=== PATIENT | male | born 1985 | race Caucasian/White ===

== ENCOUNTER 2016-06-30 14:33 | Observation (INO) | payer MEDICAID ==
[~2016-06-30] VITALS: Ht 177.8 cm; Wt 81.9 kg
[~2016-06-30 14:33] MED LIST: ARIP10TA13 PO; ARIP30TA PO; CHLO50TA6 PO; CLON-364 PO; HALDOL; HALO50AM4 IM; HYDR25TA11 PO; LEVE500T53 PO; LITH300C PO; OXCA150T PO; OXCA600T3 PO; PHEN100C PO; PRAZ5CAP2 PO; QUET100T4 PO; QUET200T PO; SERT50TA5 PO; ZIPR20VI IM
[2016-06-30 15:24] LABS: DAU SCREEN DISCLAIMER
[2016-06-30 15:27] LABS: BLOOD UREA NITROGEN 13 mg/dL (7-18)
[2016-06-30 15:31] LABS: ASPARTATE AMINO TRANSFERASE 24 U/L (15-37)
[2016-06-30 15:32] LABS: PATH.CAST-FLAG NOT PRESENT; SPERM-FLAG NOT PRESENT; SRC-FLAG NOT PRESENT; XTAL-FLAG NOT PRESENT; YLC-FLAG NOT PRESENT
[2016-06-30 15:34] LABS: ACETAMINOPHEN < 2 mcg/mL (10-30)
[2016-06-30] MEDS ORDERED: POLYETHYLENE GLYCOL 17 GM PACKET PO PRN (17:00)
[2016-06-30] MEDS ORDERED: OLAN5TAB3 PO (17:43)
[2016-06-30 18:23] VITALS: BP 104/66
[2016-06-30 20:00] VITALS: BP 104/64
[2016-06-30] MEDS ORDERED: PHENYTOIN 100 MG CAPSULE PO SCH (21:00)
[2016-06-30] MEDS ORDERED: QUETIAPINE 100MG TABLET PO SCH (21:00)
[2016-07-01 06:22] LABS: ASPARTATE AMINO TRANSFERASE 20 U/L (15-37); BLOOD UREA NITROGEN 11 mg/dL (7-18)
[2016-07-01 08:00] VITALS: BP 100/67
[2016-07-01] MEDS ORDERED: SENNA/DOCUSATE TABLET PO SCH (09:00)
[2016-07-01] MEDS ORDERED: OLAN10TA9 PO (16:46)
[2016-07-01] MEDS ORDERED: PHEN100C PO (16:46)
[2016-07-01] MEDS ORDERED: PHENYTOIN 100 MG CAPSULE PO SCH (21:00)
[2016-07-01] MEDS ORDERED: OLANZAPINE 10 MG TABLET PO SCH (21:00)
== END 2016-07-01 17:34 | disposition home or self-care (01) ==
LOC: ED 15:27 → EDIP 15:35 → 3E 18:18
PROVIDERS: ADMIT Hospitalist; ATTEND Hospitalist
DX: R45.851 Suicidal ideations (principal); R44.0 Auditory hallucinations; F31.9 Bipolar disorder, unspecified; G40.909 Epilepsy, unspecified, not intractable, without status epilepticus; F10.129 Alcohol abuse with intoxication, unspecified; F17.210 Nicotine dependence, cigarettes, uncomplicated; F43.10 Post-traumatic stress disorder, unspecified; F90.9 Attention-deficit hyperactivity disorder, unspecified type; F41.9 Anxiety disorder, unspecified; F20.9 Schizophrenia, unspecified
CPT/HCPCS: 36415; 80053; 80185; 80307; 80329; 81001; 84439; 84443; 85025; 85610; 99285; G0378; G0480

== ENCOUNTER 2016-08-11 12:27 | Emergency (ER) | payer MEDICAID ==
[~2016-08-11] VITALS: Ht 175.3 cm; Wt 82.0 kg
[~2016-08-11 12:27] MED LIST changes: +OLAN10TA9 PO; +OLAN5TAB3 PO
[2016-08-11 12:30] VITALS: BP 131/83
[2016-08-11 13:31] LABS: DAU SCREEN DISCLAIMER
[2016-08-11] MEDS ORDERED: OLAN15TA3 PO (13:36)
[2016-08-11 13:42] LABS: BLOOD UREA NITROGEN 16 mg/dL (7-18)
[2016-08-11 13:45] LABS: ASPARTATE AMINO TRANSFERASE 21 U/L (15-37)
[2016-08-11 13:46] LABS: ACETAMINOPHEN < 2 mcg/mL (10-30)
== END 2016-08-11 18:37 | disposition home or self-care (01) ==
LOC: ED 13:40
DX: F43.0 Acute stress reaction (principal); F41.9 Anxiety disorder, unspecified; F32.9 Major depressive disorder, single episode, unspecified; F25.9 Schizoaffective disorder, unspecified
CPT/HCPCS: 36415; 80053; 80307; 80329; 85025; 99284; G0480

== ENCOUNTER 2016-08-24 13:03 | Emergency (ER) | payer MEDICAID ==
[~2016-08-24] VITALS: Ht 175.3 cm; Wt 88.0 kg
[~2016-08-24 13:03] MED LIST changes: +OLAN15TA3 PO
[2016-08-24 13:30] LABS: DAU SCREEN DISCLAIMER
[2016-08-24] MEDS ORDERED: DIPHENHYDRAMINE 50 MG/ML, 1ML IM ONE (14:00)
[2016-08-24] MEDS ORDERED: DIPHENHYDRAMINE 50 MG/ML, 1ML ONE (14:05)
[2016-08-24 14:34] LABS: BLOOD UREA NITROGEN 13 mg/dL (7-18)
[2016-08-24 14:37] LABS: ACETAMINOPHEN < 2 mcg/mL (10-30)
[2016-08-24 17:58] VITALS: BP 115/79
== END 2016-08-24 18:02 | disposition home or self-care (01) ==
LOC: ED 16:47
DX: F23 Brief psychotic disorder (principal); F22 Delusional disorders; T50.905A Adverse effect of unspecified drugs, medicaments and biological substances, initial encounter
CPT/HCPCS: 36415; 80048; 80307; 80329; 82040; 85025; 96372; 99284; J1200; G0480

== ENCOUNTER 2016-09-12 09:06 | Emergency (ER) | payer MEDICAID ==
[~2016-09-12] VITALS: Ht 175.3 cm; Wt 89.0 kg
[2016-09-12 09:10] VITALS: BP 124/78
[2016-09-12] MEDS ORDERED: LEVE250T28 PO (09:30)
[2016-09-12] MEDS ORDERED: RISP4TAB2 PO (09:30)
[2016-09-12 09:59] LABS: DAU SCREEN DISCLAIMER
[2016-09-12 10:23] LABS: BLOOD UREA NITROGEN 13 mg/dL (7-18)
[2016-09-12 10:24] LABS: ASPARTATE AMINO TRANSFERASE 24 U/L (15-37)
[2016-09-12 10:28] LABS: ACETAMINOPHEN < 2 mcg/mL (10-30)
[2016-09-12] MEDS ORDERED: OLANZAPINE 5 MG TABLET PO STA (10:45)
[2016-09-12] MEDS ORDERED: OLAN20TA3 PO (10:51)
[2016-09-12] MEDS ORDERED: OLANZAPINE 10 MG TABLET PO STA (10:52)
== END 2016-09-12 11:23 | disposition home or self-care (01) ==
LOC: ED 10:18
DX: F23 Brief psychotic disorder (principal); F90.9 Attention-deficit hyperactivity disorder, unspecified type; F41.1 Generalized anxiety disorder; F32.9 Major depressive disorder, single episode, unspecified
CPT/HCPCS: 36415; 80053; 80307; 80329; 85025; 99284; G0480

== ENCOUNTER 2016-10-01 14:13 | Observation (INO) | payer MEDICAID ==
[~2016-10-01] VITALS: Ht 175.3 cm; Wt 80.0 kg
[~2016-10-01 14:13] MED LIST changes: +LEVE250T28 PO; +OLAN20TA3 PO; +RISP4TAB2 PO
[2016-10-01] MEDS ORDERED: ZIPRASIDONE 20 MG INJ IM ONE (14:30)
[2016-10-01] MEDS ORDERED: PLEASE ENTER HEIGHT AND WEIGHT MC SCH (14:30)
[2016-10-01 14:34] LABS: HEMATOCRIT 50.5 % (39.2-51.8); HEMOGLOBIN 17.6 g/dL (13.7-18.0); WHITE BLOOD COUNT 6.3 x10^3/uL (3.4-10)
[2016-10-01 14:43] LABS: BLOOD UREA NITROGEN 10 mg/dL (7-18)
[2016-10-01 14:44] LABS: ACETAMINOPHEN < 2 mcg/mL (10-30)
[2016-10-01 15:36] LABS: DAU SCREEN DISCLAIMER
[2016-10-01] MEDS ORDERED: NICOTINE 7 MG/24 HR PATCH.TD24 TD SCH (17:00)
[2016-10-01 17:47] VITALS: BP 118/73
[2016-10-01] MEDS ORDERED: QUET200T4 PO (18:01)
[2016-10-01 19:59] VITALS: BP 125/77
[2016-10-01] MEDS ORDERED: OLANZAPINE 5 MG TABLET ONE (20:09)
[2016-10-01] MEDS ORDERED: RISPERIDONE 2 MG TABLET PO SCH (21:00)
[2016-10-01] MEDS ORDERED: LEVETIRACETAM 500 MG TABLET PO SCH (21:00)
[2016-10-01] MEDS ORDERED: OLANZAPINE 10 MG TABLET PO SCH (21:00)
[2016-10-01] MEDS ORDERED: OLANZAPINE 5 MG TABLET PO SCH (21:00)
[2016-10-01] MEDS: QUETIAPINE 200 MG TABLET PO SCH (21:15)
[2016-10-02 08:30] VITALS: BP_SYST 116; BP_SYST 130; BP_DIAS 81; BP_DIAS 86
[2016-10-02] MEDS: LEVETIRACETAM 500 MG TABLET PO SCH ×2 (09:40→20:11)
[2016-10-02] MEDS: NICOTINE 7 MG/24 HR PATCH.TD24 TD SCH (09:41)
[2016-10-02] MEDS: ENOXAPARIN 40 MG/0.4 ML SQ SCH (14:00)
[2016-10-02] MEDS: QUETIAPINE 200 MG TABLET PO SCH (20:12)
[2016-10-02 20:40] VITALS: BP 125/79
[2016-10-02] MEDS ORDERED: OLANZAPINE 10 MG TABLET PO SCH (21:00)
[2016-10-03 08:43] VITALS: BP 107/73
[2016-10-03] MEDS: NICOTINE 7 MG/24 HR PATCH.TD24 TD SCH (09:11)
[2016-10-03] MEDS: LEVETIRACETAM 500 MG TABLET PO SCH (09:11)
[2016-10-03] MEDS: ENOXAPARIN 40 MG/0.4 ML SQ SCH (13:55)
== END 2016-10-03 14:40 | disposition home or self-care (01) ==
LOC: ED 15:04 → EDIP 15:37 → 3E 17:36
PROVIDERS: ADMIT Family Medicine; ATTEND Family Medicine
DX: F29 Unspecified psychosis not due to a substance or known physiological condition (principal); G40.909 Epilepsy, unspecified, not intractable, without status epilepticus; J45.909 Unspecified asthma, uncomplicated; F79 Unspecified intellectual disabilities; F12.90 Cannabis use, unspecified, uncomplicated; F17.210 Nicotine dependence, cigarettes, uncomplicated; F31.9 Bipolar disorder, unspecified; F41.1 Generalized anxiety disorder; F90.9 Attention-deficit hyperactivity disorder, unspecified type; R45.851 Suicidal ideations; Z80.6 Family history of leukemia; Z81.8 Family history of other mental and behavioral disorders; Z91.14 Patient's other noncompliance with medication regimen
CPT/HCPCS: 36415; 80048; 80307; 80329; 82040; 85025; 99285; G0378; G0480

== ENCOUNTER 2016-10-07 11:58 | Emergency (ER) | payer MEDICAID ==
[~2016-10-07] VITALS: Ht 177.8 cm; Wt 78.0 kg
[~2016-10-07 11:58] MED LIST changes: +QUET200T4 PO
[2016-10-07 12:50] LABS: HEMATOCRIT 44.8 % (39.2-51.8); HEMOGLOBIN 15.5 g/dL (13.7-18.0); WHITE BLOOD COUNT 5.2 x10^3/uL (3.4-10)
[2016-10-07 13:03] LABS: BLOOD UREA NITROGEN 12 mg/dL (7-18)
[2016-10-07 13:05] LABS: ACETAMINOPHEN < 2 mcg/mL (10-30)
[2016-10-07 14:40] VITALS: BP 112/76
== END 2016-10-07 16:05 | disposition home or self-care (01) ==
LOC: ED 13:06
DX: F32.0 Major depressive disorder, single episode, mild (principal); F25.9 Schizoaffective disorder, unspecified; F10.129 Alcohol abuse with intoxication, unspecified; F90.9 Attention-deficit hyperactivity disorder, unspecified type
CPT/HCPCS: 36415; 80048; 80307; 80329; 82040; 85025; 99284; G0480

== ENCOUNTER 2016-10-15 12:29 | Emergency (ER) | payer MEDICAID ==
[~2016-10-15] VITALS: Ht 175.3 cm; Wt 79.5 kg
[~2016-10-15 12:29] MED LIST changes: -ARIP10TA13 PO; +ARIP10TA33 PO; -ARIP30TA PO; +ARIP30TA4 PO
[2016-10-15 12:46] LABS: DAU SCREEN DISCLAIMER
[2016-10-15 12:49] LABS: HEMATOCRIT 47.3 % (39.2-51.8); HEMOGLOBIN 16.4 g/dL (13.7-18.0); WHITE BLOOD COUNT 5.5 x10^3/uL (3.4-10)
[2016-10-15 13:02] LABS: BLOOD UREA NITROGEN 7 mg/dL (7-18)
[2016-10-15 13:05] LABS: ACETAMINOPHEN < 2 mcg/mL (10-30)
[2016-10-15 17:14] VITALS: BP 108/76
== END 2016-10-15 17:21 | disposition home or self-care (01) ==
LOC: ED 12:43
DX: R44.0 Auditory hallucinations (principal); F33.9 Major depressive disorder, recurrent, unspecified; R45.851 Suicidal ideations; F25.9 Schizoaffective disorder, unspecified; F90.9 Attention-deficit hyperactivity disorder, unspecified type; F41.9 Anxiety disorder, unspecified
CPT/HCPCS: 36415; 80048; 80307; 80329; 82040; 85025; 99284; G0480

== ENCOUNTER 2016-12-19 12:21 | Emergency (ER) | payer MEDICAID ==
[~2016-12-19] VITALS: Ht 175.3 cm; Wt 85.5 kg
[2016-12-19 12:23] VITALS: BP 131/88
== END 2016-12-19 14:11 | disposition home or self-care (01) ==
LOC: ED 13:50
DX: M25.511 Pain in right shoulder (principal); W19.XXXA Unspecified fall, initial encounter; Y93.61 Activity, american tackle football; Y92.39 Other specified sports and athletic area as the place of occurrence of the external cause; Y99.8 Other external cause status
CPT/HCPCS: 99284

== ENCOUNTER 2017-01-07 20:27 | Emergency (ER) | payer MEDICAID, OTHER ==
[~2017-01-07] VITALS: Ht 175.3 cm; Wt 86.0 kg
[2017-01-07 20:29] VITALS: BP 154/71
[2017-01-07] MEDS ORDERED: BACITRACIN ZINC OINT 500U/GM, 0.9 GM ONE (21:38)
== END 2017-01-07 22:23 | disposition home or self-care (01) ==
LOC: ED 21:12
DX: S51.812A Laceration without foreign body of left forearm, initial encounter (principal); W26.0XXA Contact with knife, initial encounter; Y93.89 Activity, other specified; Y92.89 Other specified places as the place of occurrence of the external cause; Y99.9 Unspecified external cause status
CPT/HCPCS: 12001; 99283

== ENCOUNTER 2017-01-31 10:14 | Emergency (ER) | payer MEDICAID, OTHER ==
[~2017-01-31] VITALS: Ht 177.8 cm; Wt 86.2 kg
[2017-01-31 10:22] VITALS: BP 118/83
== END 2017-01-31 10:53 | disposition home or self-care (01) ==
LOC: ED 10:40
DX: G89.29 Other chronic pain (principal); M25.511 Pain in right shoulder; F90.9 Attention-deficit hyperactivity disorder, unspecified type; G40.909 Epilepsy, unspecified, not intractable, without status epilepticus
CPT/HCPCS: 99283

== ENCOUNTER 2017-02-09 16:56 | Emergency (ER) | payer MEDICAID ==
[~2017-02-09] VITALS: Ht 177.8 cm; Wt 78.0 kg
[2017-02-09] MEDS ORDERED: LORazepam 1MG TABLET PO ONE (17:30)
[2017-02-09 17:38] LABS: HEMATOCRIT 48.4 % (39.2-51.8); HEMOGLOBIN 16.7 g/dL (13.7-18.0); WHITE BLOOD COUNT 12.1 x10^3/uL (3.4-10)
[2017-02-09] MEDS ORDERED: LORazepam 1MG TABLET ONE (17:45)
[2017-02-09 17:47] LABS: ASPARTATE AMINO TRANSFERASE 11 U/L (15-37); BLOOD UREA NITROGEN 15 mg/dL (7-18)
[2017-02-09 17:49] LABS: DAU SCREEN DISCLAIMER
[2017-02-09 19:43] VITALS: BP 115/67
== END 2017-02-09 20:09 | disposition home or self-care (01) ==
LOC: ED 17:09
DX: F15.129 Other stimulant abuse with intoxication, unspecified (principal); R44.3 Hallucinations, unspecified; F90.9 Attention-deficit hyperactivity disorder, unspecified type; F25.9 Schizoaffective disorder, unspecified; F31.9 Bipolar disorder, unspecified
CPT/HCPCS: 36415; 80053; 80307; 85025; 99284; G0479

== ENCOUNTER 2017-02-16 00:19 | Emergency (ER) | payer MEDICAID ==
[~2017-02-16] VITALS: Ht 177.8 cm; Wt 84.1 kg
[2017-02-16 00:20] VITALS: BP 121/85
== END 2017-02-16 02:05 | disposition home or self-care (01) ==
LOC: ED 00:37
DX: G89.11 Acute pain due to trauma (principal); M79.642 Pain in left hand; G40.909 Epilepsy, unspecified, not intractable, without status epilepticus; F90.9 Attention-deficit hyperactivity disorder, unspecified type; Z88.0 Allergy status to penicillin; Z88.8 Allergy status to other drugs, medicaments and biological substances; F25.9 Schizoaffective disorder, unspecified; X50.0XXA Overexertion from strenuous movement or load, initial encounter; Y93.H2 Activity, gardening and landscaping; Y99.8 Other external cause status; Y92.096 Garden or yard of other non-institutional residence as the place of occurrence of the external cause
CPT/HCPCS: 29130; 99284

== ENCOUNTER 2017-08-04 12:29 | Emergency (ER) | payer MEDICAID ==
[~2017-08-04] VITALS: Ht 175.3 cm; Wt 68.0 kg
[2017-08-04] MEDS ORDERED: PHENYTOIN SODIUM 1,000 MG in SODIUM CHLORIDE 0.9% 100 ML IVPB ONE (12:30)
[2017-08-04] MEDS ORDERED: PHEN100C PO ×2 (12:39)
[2017-08-04 12:48] LABS: BASOPHILS # (AUTO) 0.02 x10^3/uL (0-0.1); BASOPHILS % (AUTO) 0 % (0-1); EOSINOPHILS # (AUTO) 0.03 x10^3/uL (0-0.4); EOSINOPHILS % (AUTO) 1 % (1-7); LYMPHOCYTES # (AUTO) 1.49 x10^3/uL (1-3.4); LYMPHOCYTES % (AUTO) 27 % (22-44); MD NO; MEAN CORPUSCULAR HEMOGLOBIN 33.5 pg (27.5-34.5); MEAN CORPUSCULAR HGB CONC 34.8 g/dL (33.2-36.2); MEAN CORPUSCULAR VOLUME 96.2 fL (81-97); MEAN PLATELET VOLUME 7.9 fL (7.4-10.4); MONOCYTES # (AUTO) 0.39 x10^3/uL (0.2-0.8); MONOCYTES % (AUTO) 7 % (2-9); NEUTROPHILS # (AUTO) 3.61 x10^3/uL (1.8-6.8); NEUTROPHILS % (AUTO) 65 % (42-75); PLATELET COUNT 140 x10^3/uL (130-400); RED BLOOD COUNT 5.02 x10^6/uL (4.38-5.82); RED CELL DISTRIBUTION WIDTH 12.7 % (9.4-14.8)
[2017-08-04 12:59] LABS: ALANINE AMINOTRANSFERASE 23 U/L (12-78); ALBUMIN 3.9 g/dL (3.4-5.0); ANION GAP 7 mmol/L (5-15); CALCIUM 8.8 mg/dL (8.5-10.1); CHLORIDE 113 mmol/L (98-107); CREATININE 0.97 mg/dL (0.7-1.3)
[2017-08-04] MEDS ORDERED: FILTER 0.22 MICRON IV ONE (13:00)
[2017-08-04 13:02] LABS: ALKALINE PHOSPHATASE 42 U/L (45-117); BILIRUBIN,TOTAL 0.5 mg/dL (0.2-1.0)
[2017-08-04 15:52] VITALS: BP 111/74
== END 2017-08-04 15:54 | disposition home or self-care (01) ==
LOC: ED 15:20
DX: G40.309 Generalized idiopathic epilepsy and epileptic syndromes, not intractable, without status epilepticus (principal); F90.9 Attention-deficit hyperactivity disorder, unspecified type; F25.9 Schizoaffective disorder, unspecified; F31.9 Bipolar disorder, unspecified; Z88.0 Allergy status to penicillin; Z88.8 Allergy status to other drugs, medicaments and biological substances
CPT/HCPCS: 36415; 80053; 85025; 96365; 96366; 99285; J1165

== ENCOUNTER 2017-08-09 00:40 | Emergency (ER) | payer MEDICAID ==
[~2017-08-09] VITALS: Ht 177.8 cm; Wt 75.0 kg
[2017-08-09] MEDS ORDERED: SODIUM CHLORIDE FLUSH 10ML SYR IVF ONE (01:00)
[2017-08-09 01:11] LABS: BASOPHILS # (AUTO) 0.03 x10^3/uL (0-0.1); BASOPHILS % (AUTO) 0 % (0-1); EOSINOPHILS # (AUTO) 0.12 x10^3/uL (0-0.4); EOSINOPHILS % (AUTO) 2 % (1-7); LYMPHOCYTES # (AUTO) 2.56 x10^3/uL (1-3.4); LYMPHOCYTES % (AUTO) 33 % (22-44); MD NO; MEAN CORPUSCULAR HEMOGLOBIN 33.6 pg (27.5-34.5); MEAN CORPUSCULAR HGB CONC 34.5 g/dL (33.2-36.2); MEAN CORPUSCULAR VOLUME 97.3 fL (81-97); MEAN PLATELET VOLUME 7.8 fL (7.4-10.4); MONOCYTES # (AUTO) 0.41 x10^3/uL (0.2-0.8); MONOCYTES % (AUTO) 5 % (2-9); NEUTROPHILS # (AUTO) 4.64 x10^3/uL (1.8-6.8); NEUTROPHILS % (AUTO) 60 % (42-75); PLATELET COUNT 145 x10^3/uL (130-400); RED BLOOD COUNT 4.93 x10^6/uL (4.38-5.82); RED CELL DISTRIBUTION WIDTH 12.7 % (9.4-14.8)
[2017-08-09 01:12] LABS: ALBUMIN 3.8 g/dL (3.4-5.0); ANION GAP 7 mmol/L (5-15); CALCIUM 8.6 mg/dL (8.5-10.1); CHLORIDE 112 mmol/L (98-107); CREATININE 0.96 mg/dL (0.7-1.3)
[2017-08-09 02:45] VITALS: BP 116/76
== END 2017-08-09 03:20 | disposition home or self-care (01) ==
LOC: ED 00:53
DX: R56.9 Unspecified convulsions (principal); G40.909 Epilepsy, unspecified, not intractable, without status epilepticus
CPT/HCPCS: 36415; 80048; 80185; 82040; 85025; 99284

== ENCOUNTER 2017-08-29 23:29 | Emergency (ER) | payer MEDICAID ==
[~2017-08-29] VITALS: Ht 165.1 cm; Wt 65.0 kg
[2017-08-30] MEDS ORDERED: ZIPRASIDONE 20 MG INJ IM ONE
[2017-08-30 00:12] VITALS: BP 126/82
== END 2017-08-30 01:15 | disposition home or self-care (01) ==
LOC: ED 08-30 00:11
DX: F20.0 Paranoid schizophrenia (principal); F41.1 Generalized anxiety disorder; F20.9 Schizophrenia, unspecified; G40.909 Epilepsy, unspecified, not intractable, without status epilepticus; F17.210 Nicotine dependence, cigarettes, uncomplicated; Z88.0 Allergy status to penicillin; Z88.1 Allergy status to other antibiotic agents
CPT/HCPCS: 99284

== ENCOUNTER 2017-09-10 20:40 | Emergency (ER) | payer MEDICAID ==
[~2017-09-10] VITALS: Ht 175.3 cm; Wt 70.0 kg
[2017-09-10 20:44] VITALS: BP 99/70
== END 2017-09-10 21:53 | disposition home or self-care (01) ==
LOC: ED 21:14
DX: S80.01XA Contusion of right knee, initial encounter (principal); W21.89XA Striking against or struck by other sports equipment, initial encounter; Y93.67 Activity, basketball; Y92.328 Other athletic field as the place of occurrence of the external cause; Y99.8 Other external cause status
CPT/HCPCS: 99284

== ENCOUNTER 2017-09-21 20:39 | Emergency (ER) | payer MEDICAID ==
[~2017-09-21] VITALS: Ht 177.8 cm; Wt 70.5 kg
[~2017-09-21 20:39] MED LIST changes: -CLON-364 PO; +CLON0.5T11 PO
[2017-09-21] MEDS ORDERED: TRAZ-137 PO (20:57)
[2017-09-21] MEDS ORDERED: PRAZ5CAP2 PO (20:57)
[2017-09-21 22:02] LABS: AMPHETAMINE SCREEN, URINE Negative (Negative); BARBITURATE SCREEN, URINE Negative (Negative); BENZODIAZEPINE SCREEN, URINE Negative (Negative); CANNABINOID SCREEN, URINE Positive (Negative); COCAINE SCREEN, URINE Negative (Negative); METHADONE SCREEN, URINE Negative (Negative); OPIATE SCREEN, URINE Negative (Negative)
[2017-09-21 22:43] VITALS: BP 126/70
== END 2017-09-21 21:57 | disposition home or self-care (01) ==
LOC: ED 21:51
DX: F33.9 Major depressive disorder, recurrent, unspecified (principal); Z00.00 Encounter for general adult medical examination without abnormal findings; F15.20 Other stimulant dependence, uncomplicated; F12.20 Cannabis dependence, uncomplicated; F25.9 Schizoaffective disorder, unspecified; G40.909 Epilepsy, unspecified, not intractable, without status epilepticus; Z79.899 Other long term (current) drug therapy
CPT/HCPCS: 80307; 99284

== ENCOUNTER 2017-11-19 01:44 | Emergency (ER) | payer MEDICAID ==
[~2017-11-19] VITALS: Ht 177.8 cm; Wt 67.0 kg
[~2017-11-19 01:44] MED LIST changes: -OXCA150T PO; +OXCA150T18 PO; +OXCA300T3 PO; +QUET300T5 PO; +TRAZ-137 PO
[2017-11-19] MEDS ORDERED: IBUPROFEN 200 MG TABLET PO ONE (02:00)
[2017-11-19] MEDS ORDERED: LEVETIRACETAM 1,000 MG in SODIUM CHLORIDE 0.9% 100 ML IV ONE (02:00)
[2017-11-19 02:21] LABS: BASOPHILS # (AUTO) 0.04 x10^3/uL (0-0.1); BASOPHILS % (AUTO) 1 % (0-1); EOSINOPHILS # (AUTO) 0.12 x10^3/uL (0-0.4); EOSINOPHILS % (AUTO) 2 % (1-7); LYMPHOCYTES # (AUTO) 1.95 x10^3/uL (1-3.4); LYMPHOCYTES % (AUTO) 32 % (22-44); MD NO; MEAN CORPUSCULAR HEMOGLOBIN 33.3 pg (27.5-34.5); MEAN CORPUSCULAR HGB CONC 34.3 g/dL (33.2-36.2); MEAN CORPUSCULAR VOLUME 97.2 fL (81-97); MEAN PLATELET VOLUME 7.5 fL (7.4-10.4); MONOCYTES # (AUTO) 0.35 x10^3/uL (0.2-0.8); MONOCYTES % (AUTO) 6 % (2-9); NEUTROPHILS # (AUTO) 3.67 x10^3/uL (1.8-6.8); NEUTROPHILS % (AUTO) 60 % (42-75); PLATELET COUNT 153 x10^3/uL (130-400); RED BLOOD COUNT 4.71 x10^6/uL (4.38-5.82); RED CELL DISTRIBUTION WIDTH 12.9 % (9.4-14.8)
[2017-11-19] MEDS ORDERED: IBUPROFEN 200 MG TABLET ONE (02:22)
[2017-11-19 02:32] LABS: ALBUMIN 3.9 g/dL (3.4-5.0); ANION GAP 12 mmol/L (5-15); CALCIUM 8.3 mg/dL (8.5-10.1); CHLORIDE 115 mmol/L (98-107)
[2017-11-19 02:36] LABS: ALANINE AMINOTRANSFERASE 40 U/L (12-78); ALKALINE PHOSPHATASE 41 U/L (45-117); BILIRUBIN,TOTAL 0.5 mg/dL (0.2-1.0); CREATININE 0.94 mg/dL (0.7-1.3); TOTAL PROTEIN 6.6 g/dL (6.4-8.2)
[2017-11-19] MEDS ORDERED: METHOCARBAMOL 750 MG TABLET ONE (03:07)
[2017-11-19 03:19] VITALS: BP 112/70
[2017-11-19] MEDS ORDERED: METHOCARBAMOL 750 MG TABLET PO ONE (03:30)
== END 2017-11-19 03:22 | disposition home or self-care (01) ==
LOC: ED 02:19
DX: G40.301 Generalized idiopathic epilepsy and epileptic syndromes, not intractable, with status epilepticus (principal); Z72.9 Problem related to lifestyle, unspecified; F10.120 Alcohol abuse with intoxication, uncomplicated; F12.10 Cannabis abuse, uncomplicated; F31.9 Bipolar disorder, unspecified; F20.9 Schizophrenia, unspecified; F90.9 Attention-deficit hyperactivity disorder, unspecified type; Z88.0 Allergy status to penicillin; Z88.8 Allergy status to other drugs, medicaments and biological substances; F17.200 Nicotine dependence, unspecified, uncomplicated
CPT/HCPCS: 36415; 80053; 80307; 85025; 93005; 99285

== ENCOUNTER 2017-11-19 22:36 | Emergency (ER) | payer MEDICAID ==
[~2017-11-19] VITALS: Ht 170.2 cm; Wt 78.0 kg
[2017-11-19 22:44] VITALS: BP 128/78
== END 2017-11-20 01:43 | disposition home or self-care (01) ==
LOC: ED 23:59
DX: G89.11 Acute pain due to trauma (principal); M79.641 Pain in right hand; F43.10 Post-traumatic stress disorder, unspecified; F31.9 Bipolar disorder, unspecified; F20.9 Schizophrenia, unspecified; F90.9 Attention-deficit hyperactivity disorder, unspecified type; Z88.0 Allergy status to penicillin; Z88.8 Allergy status to other drugs, medicaments and biological substances; F17.200 Nicotine dependence, unspecified, uncomplicated; G40.909 Epilepsy, unspecified, not intractable, without status epilepticus; W22.8XXA Striking against or struck by other objects, initial encounter; Y93.89 Activity, other specified; Y92.89 Other specified places as the place of occurrence of the external cause; Y99.8 Other external cause status
CPT/HCPCS: 99283

== ENCOUNTER 2017-12-03 23:54 | Emergency (ER) | payer MEDICAID ==
[~2017-12-03] VITALS: Ht 177.8 cm; Wt 70.5 kg
[2017-12-04 00:27] LABS: BASOPHILS # (AUTO) 0.03 x10^3/uL (0-0.1); BASOPHILS % (AUTO) 1 % (0-1); EOSINOPHILS # (AUTO) 0.17 x10^3/uL (0-0.4); EOSINOPHILS % (AUTO) 3 % (1-7); LYMPHOCYTES # (AUTO) 2.17 x10^3/uL (1-3.4); LYMPHOCYTES % (AUTO) 38 % (22-44); MD NO; MEAN CORPUSCULAR HEMOGLOBIN 33.4 pg (27.5-34.5); MEAN CORPUSCULAR HGB CONC 34.4 g/dL (33.2-36.2); MEAN CORPUSCULAR VOLUME 97.2 fL (81-97); MEAN PLATELET VOLUME 7.7 fL (7.4-10.4); MONOCYTES # (AUTO) 0.43 x10^3/uL (0.2-0.8); MONOCYTES % (AUTO) 8 % (2-9); NEUTROPHILS # (AUTO) 2.89 x10^3/uL (1.8-6.8); NEUTROPHILS % (AUTO) 51 % (42-75); PLATELET COUNT 145 x10^3/uL (130-400); RED BLOOD COUNT 4.49 x10^6/uL (4.38-5.82); RED CELL DISTRIBUTION WIDTH 12.4 % (9.4-14.8)
[2017-12-04 00:36] LABS: AMPHETAMINE SCREEN, URINE Negative (Negative); BARBITURATE SCREEN, URINE Negative (Negative); BENZODIAZEPINE SCREEN, URINE Negative (Negative); CANNABINOID SCREEN, URINE Positive (Negative); COCAINE SCREEN, URINE Negative (Negative); METHADONE SCREEN, URINE Negative (Negative); OPIATE SCREEN, URINE Negative (Negative)
[2017-12-04 00:38] LABS: ALANINE AMINOTRANSFERASE 29 U/L (12-78); ALBUMIN 3.5 g/dL (3.4-5.0); ANION GAP 5 mmol/L (5-15); CALCIUM 8.1 mg/dL (8.5-10.1); CHLORIDE 115 mmol/L (98-107); CREATININE 0.81 mg/dL (0.7-1.3); SALICYLATE LEVEL 2.8 mg/dL (2.8-20.0)
[2017-12-04 00:40] LABS: ALKALINE PHOSPHATASE 40 U/L (45-117); BILIRUBIN,TOTAL 0.3 mg/dL (0.2-1.0); TOTAL PROTEIN 6.5 g/dL (6.4-8.2)
[2017-12-04 00:46] LABS: ACETAMINOPHEN < 2 mcg/mL (10-30)
[2017-12-04 04:14] VITALS: BP 120/74
== END 2017-12-04 04:32 | disposition home or self-care (01) ==
LOC: ED 12-04 00:36
DX: F32.9 Major depressive disorder, single episode, unspecified (principal); G40.909 Epilepsy, unspecified, not intractable, without status epilepticus; F25.9 Schizoaffective disorder, unspecified
CPT/HCPCS: 36415; 80053; 80307; 80329; 85025; 99285; G0480

== ENCOUNTER 2018-01-05 11:18 | Emergency (ER) | payer MEDICAID ==
[~2018-01-05] VITALS: Ht 177.8 cm; Wt 77.1 kg
[2018-01-05 11:41] VITALS: BP 98/65
== END 2018-01-05 12:49 | disposition home or self-care (01) ==
LOC: ED 12:20
DX: Z02.89 Encounter for other administrative examinations (principal); G40.909 Epilepsy, unspecified, not intractable, without status epilepticus; F17.200 Nicotine dependence, unspecified, uncomplicated; F12.10 Cannabis abuse, uncomplicated; F25.9 Schizoaffective disorder, unspecified; F31.9 Bipolar disorder, unspecified; F41.9 Anxiety disorder, unspecified; Z72.9 Problem related to lifestyle, unspecified
CPT/HCPCS: 99281

== ENCOUNTER 2018-01-12 13:16 | Emergency (ER) | payer MEDICAID ==
[~2018-01-12] VITALS: Ht 177.8 cm; Wt 74.7 kg
[2018-01-12 13:27] VITALS: BP 122/70
== END 2018-01-12 15:25 | disposition home or self-care (01) ==
LOC: ED 15:24
DX: S61.551A Open bite of right wrist, initial encounter (principal); S16.1XXA Strain of muscle, fascia and tendon at neck level, initial encounter; M47.892 Other spondylosis, cervical region; G40.909 Epilepsy, unspecified, not intractable, without status epilepticus; F31.9 Bipolar disorder, unspecified; F41.1 Generalized anxiety disorder; F20.9 Schizophrenia, unspecified; Y04.0XXA Assault by unarmed brawl or fight, initial encounter; Y93.89 Activity, other specified; Y92.009 Unspecified place in unspecified non-institutional (private) residence as the place of occurrence of the external cause; Y99.8 Other external cause status
CPT/HCPCS: 72020; 72050; 99283

== ENCOUNTER 2018-02-15 17:35 | Emergency (ER) | payer MEDICAID ==
[~2018-02-15] VITALS: Ht 177.8 cm; Wt 75.8 kg
[2018-02-15 17:38] VITALS: BP 106/79
--- NOTE | 2018-02-15 18:05 | NUR ---
poc glucose 65. provider made aware. per provider orange juice provided.
[2018-02-15] MEDS ORDERED: ACETAMINOPHEN 500 MG TABLET ONE (18:28)
[2018-02-15] MEDS ORDERED: ACETAMINOPHEN 500 MG TABLET PO ONE (18:30)
--- NOTE | 2018-02-15 19:15 | NUR ---
repeat poc glucose of 68 honey crackers provided and provider made aware.
== END 2018-02-15 18:41 | disposition home or self-care (01) ==
LOC: ED 17:58
DX: S63.501A Unspecified sprain of right wrist, initial encounter (principal); S53.401A Unspecified sprain of right elbow, initial encounter; F17.200 Nicotine dependence, unspecified, uncomplicated; W01.0XXA Fall on same level from slipping, tripping and stumbling without subsequent striking against object, initial encounter; Y93.89 Activity, other specified; Y92.89 Other specified places as the place of occurrence of the external cause; Y99.8 Other external cause status
CPT/HCPCS: 82962; 99284

== ENCOUNTER 2018-02-17 23:46 | Emergency (ER) | payer MEDICAID ==
[~2018-02-17] VITALS: Ht 177.8 cm; Wt 68.0 kg
[2018-02-17 23:49] VITALS: BP 99/72
--- NOTE | 2018-02-17 23:58 | NUR ---
HALLUCINATIONS S/P TAKING NEW MEDS FOR SCHIZOPHRENIA TALA, STARTED NEW MED FRI
[2018-02-18 00:41] LABS: BASOPHILS # (AUTO) 0.02 x10^3/uL (0-0.1); BASOPHILS % (AUTO) 0 % (0-1); EOSINOPHILS # (AUTO) 0.12 x10^3/uL (0-0.4); EOSINOPHILS % (AUTO) 2 % (1-7); LYMPHOCYTES # (AUTO) 2.35 x10^3/uL (1-3.4); LYMPHOCYTES % (AUTO) 39 % (22-44); MD NO; MEAN CORPUSCULAR HEMOGLOBIN 33.8 pg (27.5-34.5); MEAN CORPUSCULAR HGB CONC 35.2 g/dL (33.2-36.2); MEAN CORPUSCULAR VOLUME 96.1 fL (81-97); MEAN PLATELET VOLUME 7.7 fL (7.4-10.4); MONOCYTES # (AUTO) 0.29 x10^3/uL (0.2-0.8); MONOCYTES % (AUTO) 5 % (2-9); NEUTROPHILS # (AUTO) 3.24 x10^3/uL (1.8-6.8); NEUTROPHILS % (AUTO) 54 % (42-75); PLATELET COUNT 146 x10^3/uL (130-400); RED BLOOD COUNT 4.49 x10^6/uL (4.38-5.82); RED CELL DISTRIBUTION WIDTH 12.5 % (9.4-14.8)
[2018-02-18 00:51] LABS: ALBUMIN 3.4 g/dL (3.4-5.0); ANION GAP 6 mmol/L (5-15); CHLORIDE 116 mmol/L (98-107); CREATININE 0.87 mg/dL (0.7-1.3)
--- NOTE | 2018-02-18 01:28 | NUR ---
Patient/Caregiver given discharge instructions and they have confirmed that they understand the instructions. Patient ambulatory with steady gait.
[2018-02-18] MEDS ORDERED: POTASSIUM CHLORIDE 20 MEQ TAB.ER.PRT PO ONE (01:30)
== END 2018-02-18 01:29 | disposition home or self-care (01) ==
LOC: ED 02-18 00:17
DX: F41.1 Generalized anxiety disorder (principal); G40.909 Epilepsy, unspecified, not intractable, without status epilepticus; F17.200 Nicotine dependence, unspecified, uncomplicated; E87.6 Hypokalemia
CPT/HCPCS: 36415; 80048; 82040; 85025; 99284

== ENCOUNTER 2018-03-02 09:25 | Emergency (ER) | payer MEDICAID ==
[~2018-03-02] VITALS: Ht 177.8 cm; Wt 75.0 kg
[~2018-03-02 09:25] MED LIST changes: +SERT50TA28 PO; -SERT50TA5 PO
[2018-03-02 09:36] VITALS: BP 107/69
== END 2018-03-02 10:30 | disposition home or self-care (01) ==
LOC: ED 10:08
DX: S80.01XA Contusion of right knee, initial encounter (principal); F31.9 Bipolar disorder, unspecified; G40.909 Epilepsy, unspecified, not intractable, without status epilepticus; F20.9 Schizophrenia, unspecified; F17.200 Nicotine dependence, unspecified, uncomplicated; W10.9XXA Fall (on) (from) unspecified stairs and steps, initial encounter; Y93.89 Activity, other specified; Y92.89 Other specified places as the place of occurrence of the external cause; Y99.8 Other external cause status
CPT/HCPCS: 99283

== ENCOUNTER 2018-09-21 23:25 | Emergency (ER) | payer MEDICAID ==
[~2018-09-21] VITALS: Ht 175.3 cm; Wt 80.9 kg
[~2018-09-21 23:25] MED LIST changes: +HYDR-826 PO; -HYDR25TA11 PO; +ZIPR20CA2 IM; -ZIPR20VI IM
[2018-09-21 23:27] VITALS: BP 132/78
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
--- NOTE | 2018-09-21 23:42 | NUR ---
PT'S BELONGGINGS PUT INTO 2 BAGS AND PUT INTO LOCKER.
--- NOTE | 2018-09-22 00:13 | NUR ---
PT IS NOT ABLE TO PROVIDE URINE SAMPLE AT THIS TIME. URINAL AT BEDSIDE.
--- NOTE | 2018-09-22 00:35 | NUR ---
PT PROVIDED URINE SAMPLE. UA SENT.
[2018-09-22 00:45] LABS: AMPHETAMINE SCREEN, URINE Negative (Negative); BARBITURATE SCREEN, URINE Negative (Negative); BENZODIAZEPINE SCREEN, URINE Negative (Negative); CANNABINOID SCREEN, URINE Positive (Negative); COCAINE SCREEN, URINE Negative (Negative); METHADONE SCREEN, URINE Negative (Negative); OPIATE SCREEN, URINE Negative (Negative)
[2018-09-22 00:48] LABS: BASOPHILS # (AUTO) 0.01 x10^3/uL (0-0.1); BASOPHILS % (AUTO) 0 % (0-1); EOSINOPHILS % (AUTO) 0 % (1-7); LYMPHOCYTES % (AUTO) 24 % (22-44); MD NO; MEAN CORPUSCULAR HEMOGLOBIN 33.9 pg (27.5-34.5); MEAN CORPUSCULAR HGB CONC 34.2 g/dL (33.2-36.2); MEAN CORPUSCULAR VOLUME 99.1 fL (81-97); MEAN PLATELET VOLUME 7.9 fL (7.4-10.4); MONOCYTES % (AUTO) 6 % (2-9); NEUTROPHILS # (AUTO) 5.09 x10^3/uL (1.8-6.8); NEUTROPHILS % (AUTO) 71 % (42-75); PLATELET COUNT 118 x10^3/uL (130-400); RED BLOOD COUNT 4.08 x10^6/uL (4.38-5.82); RED CELL DISTRIBUTION WIDTH 13.4 % (9.4-14.8)
[2018-09-22 01:00] LABS: ALANINE AMINOTRANSFERASE 28 U/L (12-78); ALBUMIN 3.5 g/dL (3.4-5.0); ANION GAP 9 mmol/L (5-15); CALCIUM 8.1 mg/dL (8.5-10.1); CHLORIDE 117 mmol/L (98-107); CREATININE 0.74 mg/dL (0.7-1.3)
[2018-09-22 01:01] LABS: SALICYLATE LEVEL < 1.7 mg/dL (2.8-20.0)
[2018-09-22 01:02] LABS: ALKALINE PHOSPHATASE 36 U/L (45-117); BILIRUBIN,TOTAL 0.2 mg/dL (0.2-1.0); TOTAL PROTEIN 6.1 g/dL (6.4-8.2)
--- NOTE | 2018-09-22 01:36 | NUR ---
PT RESTING IN [facility]. RESPS EVEN AND UNLABORED. SITTER MONITORING FROM HALLWAY FOR SAFETY. ROOM REMAINS SECURE.
--- NOTE | 2018-09-22 03:00 | NUR ---
PT RESTING IN [facility]. RESPS EVEN AND UNLABORED. SITTER MONITORING FROM HALLWAY FOR SAFETY. ROOM REMAINS SECURE.
--- NOTE | 2018-09-22 05:27 | NUR ---
Jameel cook in [facility] - 09/22/18 at 0530 by LORIN Patient given discharge instructions and they have confirmed that they understand the instructions. Patient ambulatory with steady gait.
--- NOTE | 2018-09-22 05:30 | NUR ---
Patient given discharge instructions and they have confirmed that they understand the instructions. Patient ambulatory with steady gait. pt no longer si/hi. edmd ok'd to be dc at this time. pt's aox4. resps even and unlabored.
== END 2018-09-22 05:29 | disposition home or self-care (01) ==
LOC: ED 09-22 05:20
DX: F41.1 Generalized anxiety disorder (principal); Z72.9 Problem related to lifestyle, unspecified; F17.200 Nicotine dependence, unspecified, uncomplicated; F25.9 Schizoaffective disorder, unspecified; F31.9 Bipolar disorder, unspecified
CPT/HCPCS: 36415; 80053; 80307; 85025; 99284

== ENCOUNTER 2019-01-14 05:21 | Emergency (ER) | payer MEDICAID ==
[~2019-01-14] VITALS: Ht 175.3 cm; Wt 79.8 kg
[~2019-01-14 05:21] MED LIST changes: -ZIPR20CA2 IM; +ZIPR20VI IM
[2019-01-14 05:43] VITALS: BP 125/70
--- NOTE | 2019-01-14 07:46 | NUR ---
Patient/Caregiver given discharge instructions and they have confirmed that they understand the instructions. Patient ambulatory with steady gait.
== END 2019-01-14 07:47 | disposition home or self-care (01) ==
LOC: ED 06:35
DX: S51.812A Laceration without foreign body of left forearm, initial encounter (principal); F32.9 Major depressive disorder, single episode, unspecified; F20.9 Schizophrenia, unspecified; Z76.0 Encounter for issue of repeat prescription; E11.9 Type 2 diabetes mellitus without complications; F43.10 Post-traumatic stress disorder, unspecified; W45.8XXA Other foreign body or object entering through skin, initial encounter; Y93.89 Activity, other specified; Y92.89 Other specified places as the place of occurrence of the external cause; Y99.8 Other external cause status
CPT/HCPCS: 99283

== ENCOUNTER 2019-01-21 19:10 | Emergency (ER) | payer MEDICAID ==
[~2019-01-21] VITALS: Ht 175.3 cm; Wt 82.0 kg
[2019-01-21] MEDS ORDERED: HALOPERIDOL 5 MG TABLET ONE (19:25)
[2019-01-21] MEDS ORDERED: HALOPERIDOL 5 MG TABLET PO ONE (19:30)
[2019-01-21 19:32] VITALS: BP 130/70
--- NOTE | 2019-01-21 19:41 | NUR ---
bib [facility] for auditory hallucination, "voices are telling him to hurt himself", stated that he would cut himself, h/x cutting left arm x 1 week ago. hr-80, b/p-130/70, 95% r/a. room secured, personal belongings ( 2 bags) in security locker, sitter at doorway for monitoring
[2019-01-21] MEDS ORDERED: TRAZ-137 PO (20:01)
[2019-01-21] MEDS ORDERED: ASEN5TAB7 PO (20:01)
--- NOTE | 2019-01-21 20:01 | NUR ---
pt medicated per mar
--- NOTE | 2019-01-21 20:28 | NUR ---
Patient/Caregiver given discharge instructions and they have confirmed that they understand the instructions. Patient ambulatory with steady gait. PT GIVEN TAXI VOUCHER AND TAXI CALLED FOR HOME FOR SAFE DC.
== END 2019-01-21 20:30 | disposition home or self-care (01) ==
LOC: ED 19:21
DX: F28 Other psychotic disorder not due to a substance or known physiological condition (principal); F12.10 Cannabis abuse, uncomplicated; F25.9 Schizoaffective disorder, unspecified; R45.851 Suicidal ideations; R56.9 Unspecified convulsions; Z72.9 Problem related to lifestyle, unspecified
CPT/HCPCS: 99284

== ENCOUNTER 2019-01-25 11:33 | Emergency (ER) | payer MEDICAID ==
[~2019-01-25] VITALS: Ht 170.2 cm; Wt 86.6 kg
[~2019-01-25 11:33] MED LIST changes: +ASEN5TAB7 PO
[2019-01-25 11:35] VITALS: BP 103/70
--- NOTE | 2019-01-25 12:15 | NUR ---
"I GETTING SICKER. I'VE BEEN COUGHIN REAL BAD AND BLOWING MY NOSE A LOT AND IT'S RUNNY AND I FEEL CONGESTED". SX STARTED 1 WK AGO. DENIES ACHES/FEVER. APPEARS WELL Allergies reviewed-Provider to bedside to test (Flu/strep.admin decadron)
[2019-01-25] MEDS ORDERED: DEXAMETHASONE 4 MG TABLET ONE (12:16)
--- NOTE | 2019-01-25 12:22 | NUR ---
Medicated per emar
[2019-01-25] MEDS ORDERED: DEXAMETHASONE 4 MG TABLET PO ONE (12:30)
[2019-01-25 12:36] LABS: RAPID INFLUENZA A Negative (Negative); RAPID INFLUENZA B Negative (Negative)
== END 2019-01-25 13:05 | disposition home or self-care (01) ==
LOC: ED 12:13
DX: B34.9 Viral infection, unspecified (principal); F17.200 Nicotine dependence, unspecified, uncomplicated; E11.9 Type 2 diabetes mellitus without complications; G40.909 Epilepsy, unspecified, not intractable, without status epilepticus
CPT/HCPCS: 71046; 87400; 99284

== ENCOUNTER 2019-02-27 12:49 | Emergency (ER) | payer MEDICAID ==
[~2019-02-27] VITALS: Ht 175.3 cm; Wt 70.5 kg
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
[2019-02-27 14:32] LABS: BASOPHILS # (AUTO) 0.02 x10^3/uL (0-0.1); BASOPHILS % (AUTO) 0 % (0-1); EOSINOPHILS % (AUTO) 0 % (1-7); LYMPHOCYTES # (AUTO) 1.75 x10^3/uL (1-3.4); LYMPHOCYTES % (AUTO) 26 % (22-44); MD NO; MEAN CORPUSCULAR HEMOGLOBIN 33.1 pg (27.5-34.5); MEAN CORPUSCULAR HGB CONC 34.4 g/dL (33.2-36.2); MEAN CORPUSCULAR VOLUME 96.1 fL (81-97); MEAN PLATELET VOLUME 8.2 fL (7.4-10.4); MONOCYTES # (AUTO) 0.45 x10^3/uL (0.2-0.8); MONOCYTES % (AUTO) 7 % (2-9); NEUTROPHILS # (AUTO) 4.65 x10^3/uL (1.8-6.8); NEUTROPHILS % (AUTO) 68 % (42-75); PLATELET COUNT 150 x10^3/uL (130-400); RED BLOOD COUNT 5.02 x10^6/uL (4.38-5.82); RED CELL DISTRIBUTION WIDTH 12.6 % (9.4-14.8)
[2019-02-27 14:43] LABS: ALBUMIN 3.7 g/dL (3.4-5.0); CALCIUM 8.4 mg/dL (8.5-10.1); CHLORIDE 114 mmol/L (98-107); CREATININE 0.97 mg/dL (0.7-1.3)
[2019-02-27 14:51] LABS: ANION GAP 5 mmol/L (5-15)
[2019-02-27 14:52] LABS: ALANINE AMINOTRANSFERASE 34 U/L (12-78); ALKALINE PHOSPHATASE 41 U/L (45-117); BILIRUBIN,TOTAL 0.4 mg/dL (0.2-1.0); TOTAL PROTEIN 6.8 g/dL (6.4-8.2)
[2019-02-27 15:05] LABS: SALICYLATE LEVEL < 1.7 mg/dL (2.8-20.0)
[2019-02-27 15:59] LABS: AMPHETAMINE SCREEN, URINE Negative (Negative); BARBITURATE SCREEN, URINE Negative (Negative); BENZODIAZEPINE SCREEN, URINE Negative (Negative); CANNABINOID SCREEN, URINE Positive (Negative); COCAINE SCREEN, URINE Negative (Negative); METHADONE SCREEN, URINE Negative (Negative); OPIATE SCREEN, URINE Negative (Negative)
[2019-02-27 16:00] VITALS: BP 108/65
--- NOTE | 2019-02-27 16:12 | NUR ---
D/C INSTRUCTIONS & F/U APPT RV'WD WITH PT, HE VERBALIZES UNDERSTANDING. PT DECLINED LIST OF COMMUNITY RESOURCES, STATES HE ALREADY HAS IT. PT AMBULATED OUT OF ED WITHOUT DIFFICULTY, STATES HE WILL WALK HOME.
== END 2019-02-27 16:19 | disposition home or self-care (01) ==
LOC: MERGE 12:49 → EDBD 12:49 → ED 16:00
DX: F33.9 Major depressive disorder, recurrent, unspecified (principal); E11.9 Type 2 diabetes mellitus without complications
CPT/HCPCS: 36415; 80053; 80307; 85025; 99284

== ENCOUNTER 2019-03-16 14:08 | Emergency (ER) | payer MEDICAID ==
[~2019-03-16] VITALS: Ht 172.7 cm; Wt 80.0 kg
--- NOTE | 2019-03-16 14:25 | NUR ---
LAB AT BEDSIDE PROVIDED WITH PO FLUIDS TO EXPEDITE UA- PATIENT UNABLE TO VOID AT THIS TIME
--- NOTE | 2019-03-16 14:33 | NUR ---
BIB BY [facility] FOR EVALUATION AFTER TAKING 8 TABS OF ZYPREXA (10MG X 8=80MG) & 15 TABS OF TRILEPTAL (300MG X 00=[id number]) AT ROUGHLY 1400. WAS NOT TRYING TO HARM SELF. PATIENT HAVING ACUTE EXACERBATION OF AUDITORY HALLUCINATIONS AND WANTED IT TO STOP. PATIENT ALSO SMOKED "TWO BOWL OR MARIJUANA WELL." oN ARRIVAL DROWSY BUT ROUSES TO VOICE. NO NEURO DEFICITS. SFEBRILE/VSS PLACED ON ACCOUNTS PAYABLE SPECIALIST, EMT AT BEDSIDE -ECG OBTAINED ER PROVIDER REPORTS "I DONT THINK HE NEEDS A PSYCHIATRIC HOLD BUT WE WILL NEED TO WORK HIM UP MEDICALLY." DISTILLERY MANAGER AGREEABLE
[2019-03-16 14:43] LABS: BASOPHILS # (AUTO) 0.01 x10^3/uL (0-0.1); BASOPHILS % (AUTO) 0 % (0-1); EOSINOPHILS % (AUTO) 0 % (1-7); LYMPHOCYTES # (AUTO) 1.62 x10^3/uL (1-3.4); LYMPHOCYTES % (AUTO) 31 % (22-44); MD NO; MEAN CORPUSCULAR HEMOGLOBIN 32.8 pg (27.5-34.5); MEAN CORPUSCULAR HGB CONC 33.8 g/dL (33.2-36.2); MEAN CORPUSCULAR VOLUME 97.1 fL (81-97); MONOCYTES # (AUTO) 0.39 x10^3/uL (0.2-0.8); MONOCYTES % (AUTO) 8 % (2-9); NEUTROPHILS # (AUTO) 3.18 x10^3/uL (1.8-6.8); NEUTROPHILS % (AUTO) 61 % (42-75); PLATELET COUNT 148 x10^3/uL (130-400); RED BLOOD COUNT 4.94 x10^6/uL (4.38-5.82); RED CELL DISTRIBUTION WIDTH 12.6 % (9.4-14.8)
[2019-03-16 14:57] LABS: ALANINE AMINOTRANSFERASE 20 U/L (12-78); ALBUMIN 3.7 g/dL (3.4-5.0); ANION GAP 5 mmol/L (5-15); CALCIUM 8.5 mg/dL (8.5-10.1); CHLORIDE 114 mmol/L (98-107); CREATININE 0.91 mg/dL (0.7-1.3); SALICYLATE LEVEL 2.6 mg/dL (2.8-20.0)
[2019-03-16 14:58] LABS: ALKALINE PHOSPHATASE 42 U/L (45-117); BILIRUBIN,TOTAL 0.7 mg/dL (0.2-1.0); TOTAL PROTEIN 6.9 g/dL (6.4-8.2)
--- NOTE | 2019-03-16 15:19 | NUR ---
PSYCHIATRIC CPAS AT BEDSIDE FOR EVALUATION WITH REASSESSMENT PATIENT DROWSY BUT ROUSES TO SPEECH, 100, 100/55 VOIDED-UA SENT
--- NOTE | 2019-03-16 15:56 | NUR ---
hr noted to 30-40 (sinus)-ecg obtained. patient denies symptoms. Provider made aware
--- NOTE | 2019-03-16 16:40 | NUR ---
VSS NOW STABLE ON HOME ENERGY INSPECTOR (NSR IN THE 60-70) 94/59 TOLERATED FULL DIET TRAY
[2019-03-16 17:10] VITALS: BP 93/59
--- NOTE | 2019-03-16 17:23 | NUR ---
DISCHARGED HOME IN THE CARE OF GIRLFRIEND WHO WILL CONTINUE TO CLOSELY MONITOR PATIENT FOR DROWSINESS/CHANGE IN CAP REFILL/COLOR ADVISED TO SEE PSYCHIATRIST TO ADJUST MEDICATION TO CONTROL AUDITORY HALLUCINATIONS-PATIENT AGREEABLE PROVIDED WITH [employer] VOUCHER
== END 2019-03-16 17:27 | disposition home or self-care (01) ==
LOC: ED 15:05
DX: F29 Unspecified psychosis not due to a substance or known physiological condition (principal); R44.0 Auditory hallucinations; F31.9 Bipolar disorder, unspecified; F20.9 Schizophrenia, unspecified; E11.9 Type 2 diabetes mellitus without complications; F43.10 Post-traumatic stress disorder, unspecified; Z88.0 Allergy status to penicillin; Z72.9 Problem related to lifestyle, unspecified; Z88.8 Allergy status to other drugs, medicaments and biological substances
CPT/HCPCS: 36415; 80053; 80307; 85025; 93005; 99284

== ENCOUNTER 2019-04-18 10:44 | Emergency (ER) | payer MEDICAID ==
[~2019-04-18] VITALS: Ht 175.3 cm; Wt 90.0 kg
[~2019-04-18 10:44] MED LIST changes: +CLON-364 PO; -CLON0.5T11 PO; -TRAZ-137 PO; +TRAZ-175 PO
--- NOTE | 2019-04-18 11:02 | NUR ---
professional builder note: Pt moved to secured room for safety. Sitter requested from float pool elevator supervisor.
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
--- NOTE | 2019-04-18 11:18 | NUR ---
practice office associate note: Enedina arrived for pt observation.
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
[2019-04-18 11:31] LABS: BASOPHILS # (AUTO) 0.04 x10^3/uL (0-0.1); BASOPHILS % (AUTO) 0 % (0-1); EOSINOPHILS % (AUTO) 0 % (1-7); LYMPHOCYTES # (AUTO) 1.48 x10^3/uL (1-3.4); LYMPHOCYTES % (AUTO) 17 % (22-44); MD NO; MEAN CORPUSCULAR HEMOGLOBIN 32.6 pg (27.5-34.5); MEAN CORPUSCULAR HGB CONC 34.1 g/dL (33.2-36.2); MEAN CORPUSCULAR VOLUME 95.4 fL (81-97); MEAN PLATELET VOLUME 8.1 fL (7.4-10.4); MONOCYTES # (AUTO) 0.44 x10^3/uL (0.2-0.8); MONOCYTES % (AUTO) 5 % (2-9); NEUTROPHILS # (AUTO) 7.02 x10^3/uL (1.8-6.8); NEUTROPHILS % (AUTO) 78 % (42-75); PLATELET COUNT 180 x10^3/uL (130-400); RED BLOOD COUNT 5.08 x10^6/uL (4.38-5.82); RED CELL DISTRIBUTION WIDTH 12.8 % (9.4-14.8)
[2019-04-18 11:35] LABS: AMPHETAMINE SCREEN, URINE Negative (Negative); BARBITURATE SCREEN, URINE Negative (Negative); BENZODIAZEPINE SCREEN, URINE Negative (Negative); CANNABINOID SCREEN, URINE Positive (Negative); COCAINE SCREEN, URINE Negative (Negative); METHADONE SCREEN, URINE Negative (Negative); OPIATE SCREEN, URINE Negative (Negative)
--- NOTE | 2019-04-18 11:41 | NUR ---
REPORT RECIEVED FROM MUSA HERNANDEZ. PT RESTING IN BED. SAFTEY PRECAUTIONS IN PLACE.
[2019-04-18 11:42] VITALS: BP 128/73
[2019-04-18 11:43] LABS: ALBUMIN 4.1 g/dL (3.4-5.0); ANION GAP 9 mmol/L (5-15); CALCIUM 8.9 mg/dL (8.5-10.1); CHLORIDE 116 mmol/L (98-107); SALICYLATE LEVEL 1.7 mg/dL (2.8-20.0)
--- NOTE | 2019-04-18 12:12 | NUR ---
REPORT GIVEN TO DAVID DORSEY.
--- NOTE | 2019-04-18 12:31 | NUR ---
SAFETY PRECAUTIONS IN PLACE. PT RESTING IN BED
--- NOTE | 2019-04-18 13:29 | NUR ---
PT REFUSING DC DUE TO DIZZTNESS. ERMD NOTIFIED.
--- NOTE | 2019-04-18 13:39 | NUR ---
STEADY AMBULATION. PT BEONGINGS PROVIDED, DISCHARGE INSTRUCTIONS REVIEWED
== END 2019-04-18 13:57 | disposition home or self-care (01) ==
LOC: ED 12:49
DX: T42.1X1A Poisoning by iminostilbenes, accidental (unintentional), initial encounter (principal); R42 Dizziness and giddiness; F17.200 Nicotine dependence, unspecified, uncomplicated; E11.9 Type 2 diabetes mellitus without complications; Y92.9 Unspecified place or not applicable
CPT/HCPCS: 36415; 80048; 80307; 82040; 85025; 93005; 99284

== ENCOUNTER 2020-05-21 11:02 | Emergency (ER) | payer MEDICAID ==
[~2020-05-21] VITALS: Ht 177.8 cm; Wt 84.1 kg
[~2020-05-21 11:02] MED LIST changes: -RISP4TAB2 PO; +RISP4TAB66 PO
[2020-05-21 11:11] VITALS: BP 121/79
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
--- NOTE | 2020-05-21 12:13 | NUR ---
ALL RESULTS ARE BACK AT THIS TIME. CHART UP FOR RECHECK.
--- NOTE | 2020-05-21 12:42 | NUR ---
COMMUNITY ARTIST AT BEDSIDE FOR DARBY WRAP.
== END 2020-05-21 12:50 | disposition home or self-care (01) ==
LOC: ED 12:18
DX: S83.411A Sprain of medial collateral ligament of right knee, initial encounter (principal); E11.9 Type 2 diabetes mellitus without complications; W18.30XA Fall on same level, unspecified, initial encounter; Y93.89 Activity, other specified; Y92.328 Other athletic field as the place of occurrence of the external cause; Y99.8 Other external cause status
CPT/HCPCS: 99283

== ENCOUNTER 2020-05-26 12:07 | Emergency (ER) | payer MEDICAID ==
[~2020-05-26] VITALS: Ht 175.3 cm; Wt 81.7 kg
[2020-05-26] MEDS ORDERED: ARIP2TAB2 PO (12:34)
--- NOTE | 2020-05-26 12:34 | NUR ---
TASK RN: PT SITTING UP IN [facility], NAD NOTED. PT REPORTS FREQUENT, PRODUCTIVE COUGH AND BODY ACHES X TWO DAYS. HISTORY OF ASTHMA, CURRENT SMOKER. PLEURITIC CHEST PAIN WITH COUGH AND PALPATION; EXPIRATORY WHEEZE PRESENT. DENIES FEVER/SOB/ABD PAIN. BP/SPO2 MONITOR IN PLACE. AWAITING ERP EVAL.
[2020-05-26 13:19] VITALS: BP 122/75
== END 2020-05-26 13:24 | disposition home or self-care (01) ==
LOC: ED 13:10
DX: B34.9 Viral infection, unspecified (principal); Z20.822 Contact with and (suspected) exposure to COVID-19; R05 Cough; J02.9 Acute pharyngitis, unspecified; R09.81 Nasal congestion; G40.909 Epilepsy, unspecified, not intractable, without status epilepticus; Z79.899 Other long term (current) drug therapy
CPT/HCPCS: 99283; U0003

== ENCOUNTER 2020-05-30 20:23 | Emergency (ER) | payer MEDICAID ==
[~2020-05-30] VITALS: Ht 175.3 cm; Wt 75.0 kg
[~2020-05-30 20:23] MED LIST changes: +ARIP2TAB2 PO; +OLAN10TA69 PO; -OLAN10TA9 PO; -QUET200T PO; +QUET200T2 PO
[2020-05-30] MEDS ORDERED: FAMOTIDINE 20 MG/2 ML IVPush ONE (20:30)
[2020-05-30] MEDS ORDERED: SODIUM CHLORIDE FLUSH 10ML SYR IVF ONE (20:30)
[2020-05-30] MEDS ORDERED: SODIUM CHLORIDE 0.9% 1,000ML IVBOLUS ONE (20:30)
[2020-05-30] MEDS ORDERED: ONDANSETRON 2MG/ML, 2ML IVPush ONE (20:30)
--- NOTE | 2020-05-30 20:43 | NUR ---
PIV PLACED, LABS DRAWN AND SENT TO LAB WITH LAB SLIP. IVF RUNNING. EKG COMPLETE. GF AT BEDSIDE.
[2020-05-30] MEDS ORDERED: FAMOTIDINE 20 MG/2 ML ONE (20:46)
--- NOTE | 2020-05-30 20:54 | NUR ---
BALLAST CLEANING MACHINE OPERATOR PER APR. PT REFUSED ZOFRAN, PT DENIES NAUSEA AT THIS TIME. THE ZOFRAN FROM [facility] WAS EFFECTIVE.
[2020-05-30 20:57] LABS: ALANINE AMINOTRANSFERASE 24 U/L (12-78); ALBUMIN 3.6 g/dL (3.4-5.0); ANION GAP 7 mmol/L (5-15); CALCIUM 8.7 mg/dL (8.5-10.1); CHLORIDE 113 mmol/L (98-107); CREATININE 0.93 mg/dL (0.7-1.3)
[2020-05-30 21:00] LABS: ALKALINE PHOSPHATASE 34 U/L (45-117); BILIRUBIN,TOTAL 0.4 mg/dL (0.2-1.0); TOTAL PROTEIN 6.7 g/dL (6.4-8.2)
[2020-05-30 21:15] LABS: BASOPHILS % (AUTO) 1 % (0-1); EOSINOPHILS % (AUTO) 3 % (1-7); LYMPHOCYTES % (AUTO) 31 % (22-44); MEAN CORPUSCULAR HEMOGLOBIN 33.4 pg (27.5-34.5); MEAN CORPUSCULAR HGB CONC 35.2 g/dL (33.2-36.2); MEAN PLATELET VOLUME 8.2 fL (7.4-10.4); MONOCYTES % (AUTO) 8 % (2-9); NEUTROPHILS % (AUTO) 58 % (42-75); PLATELET COUNT 179 x10^3/uL (130-400); RED BLOOD COUNT 4.78 x10^6/uL (4.38-5.82); RED CELL DISTRIBUTION WIDTH 12.5 % (9.4-14.8)
--- NOTE | 2020-05-30 21:30 | NUR ---
ALL RESULTS ARE BACK AT THIS TIME. CHART UP FOR RECHECK.
--- NOTE | 2020-05-30 21:34 | NUR ---
PT AMBULATED TO RESTROOM WITH STEADY GAIT.
[2020-05-30 21:44] VITALS: BP 105/62
== END 2020-05-30 21:47 | disposition home or self-care (01) ==
LOC: ED 20:49
DX: R11.2 Nausea with vomiting, unspecified (principal); R94.31 Abnormal electrocardiogram [ECG] [EKG]; E11.9 Type 2 diabetes mellitus without complications
CPT/HCPCS: 36415; 80053; 83690; 85025; 93005; 96361; 96374; 99284; J7030